=== PATIENT | female | born 1950 | race Caucasian/White ===

== ENCOUNTER 2024-06-11 14:00 | Emergency (ER) | payer MEDICARE, MEDICAID ==
[2024-06-11] MEDS ORDERED: ACETAMINOPHEN325 M2 PO (14:14)
[2024-06-11] MEDS ORDERED: LIPITOR40 MG PO (14:15)
[2024-06-11] MEDS ORDERED: BISACODYL10 MG R (14:16)
[2024-06-11] MEDS ORDERED: DIVALPROEX SOD500 MG PO (14:17)
[2024-06-11] MEDS ORDERED: SM ENEMA READY R (14:19)
[2024-06-11] MEDS ORDERED: HUMALOG100 UNIT/2 SQ (14:21)
[2024-06-11] MEDS ORDERED: INSULIN GL100 UNIT/1 SQ (14:22)
[2024-06-11] MEDS ORDERED: JANUVIA50 MG PO (14:23)
[2024-06-11] MEDS ORDERED: LACTAID FAS9000 UNIT PO (14:24)
[2024-06-11] MEDS ORDERED: LISINOPRIL10 M1 PO (14:25)
[2024-06-11] MEDS ORDERED: LOPERAMIDE HCL2 MG PO (14:26)
[2024-06-11] MEDS ORDERED: LORADAMED10 MG PO (14:28)
[2024-06-11] MEDS ORDERED: MAGOX 400400 MG PO (14:28)
[2024-06-11] MEDS ORDERED: MELATONIN10 M2 PO (14:29)
[2024-06-11] MEDS ORDERED: METFORMIN HYDR500 MG PO (14:29)
[2024-06-11] MEDS ORDERED: METOPROLOL SUCC50 M1 PO (14:30)
[2024-06-11] MEDS ORDERED: OMEPRAZOLE MAGN20 MG PO (14:31)
[2024-06-11] MEDS ORDERED: POTASSIUM99 M7 PO (14:33)
[2024-06-11] MEDS ORDERED: REMERON15 M2 PO (14:34)
[2024-06-11] MEDS ORDERED: SYNTHROID300 MCG PO (14:35)
[2024-06-11] MEDS ORDERED: VIMPAT100 MG PO (14:35)
[2024-06-11] MEDS ORDERED: VITAMIN D325 MCG PO (14:36)
[2024-06-11 14:42] LABS: BASO % 0.3 % (0.0-1.0); EOS # 0.3 10*3/uL (0.0-0.4); EOS % 4.5 % (1.0-4.0); HEMATOCRIT 32.9 % (37.0-47.0); LYMPH # 1.5 10*3/uL (1.3-4.4); LYMPH % 20.1 % (27.0-41.0); MEAN CELL VOLUME 83.1 fl (81.0-99.0); MEAN CORPUSCULAR HGB 24.7 pg (27.0-31.0); MEAN CORPUSCULAR HGB CONC 29.8 g/dl (33.0-37.0); MEAN PLATELET VOLUME 8.7 fl (9.6-12.3); MONO # 0.6 10*3/uL (0.1-1.0); MONO % 8.6 % (3.0-9.0); NEUT # 4.9 10*3/uL (2.3-7.9); NEUT % 66.2 % (47.0-73.0); PLATELET COUNT AUTOMATED 167 10*3/uL (130-400); RED BLOOD COUNT 3.96 10*6/uL (4.10-5.10); RED CELL DISTRI WIDTH 15.9 % (0-14.5); WHITE BLOOD COUNT 7.3 10*3/uL (4.8-10.8)
[2024-06-11 15:20] LABS: BILIRUBIN Negative (Negative); BLOOD Negative (Negative); CLARITY Cloudy (Clear); COLOR Yellow (Yellow); GLUCOSE Trace (Negative); KETONE 1+ (Negative); LEUKO ESTERASE 2+ (Negative); NITRITE Negative (Negative); SPECIFIC GRAVITY 1.025 (1.001-1.030); UROBILINOGEN 0.2 E.U./dl (0.0-1.0)
[2024-06-11 15:27] LABS: URINE AMPHETAMINES Negative (1000ng/ml); URINE BARBITURATES Negative (200ng/ml); URINE BENZODIAZEPINES Negative (200ng/ml); URINE CANNABINOIDS (THC) Negative (50ng/ml); URINE COCAINE Negative (300ng/ml); URINE METHADONE Negative (300ng/ml); URINE OPIATES Negative (300ng/ml); URINE PHENCYCLIDINE Negative (25ng/ml)
[2024-06-11 15:30] LABS: ALKALINE PHOSPHATASE 75 U/L (46-116); BUN 8 mg/dl (9-23); CHLORIDE 106 mmol/L (98-107); CPK 27 U/L (34-171); POTASSIUM 3.4 mmol/L (3.4-5.1); TOTAL PROTEIN 5.8 gm/dL (6.0-8.0)
[2024-06-11 15:31] LABS: ETHYL ALCOHOL < 3.0 mg/dl (<3); SGPT/ALT < 7 U/L (5-49)
[2024-06-11] MEDS ORDERED: Fosfomycin Tromethamine 3 GM PDS PO ONE (15:35)
[2024-06-11 15:36] LABS: BACTERIA 1+; WBC 21-30 wbc/hpf (0-5)
[2024-06-11] MEDS ORDERED: ALUM-MAG HYDROX30 ML PO (16:48)
[2024-06-11] MEDS ORDERED: PROBIOTIC250 MG PO (16:55)
[2024-06-11] MEDS ORDERED: Synthroid,Lev200 MCG PO (18:07)
[2024-06-11] MEDS ORDERED: Synthroid,Levo25 MCG PO (18:08)
== END 2024-06-11 16:08 | disposition admitted as inpatient to this hospital (09) ==
LOC: ED 14:00
PROVIDERS: Nurse Practitioner Family
DX: F63.81 Intermittent explosive disorder (principal); Z20.822 Contact with and (suspected) exposure to COVID-19; N39.0 Urinary tract infection, site not specified; I10 Essential (primary) hypertension; E03.9 Hypothyroidism, unspecified; E78.5 Hyperlipidemia, unspecified; M19.90 Unspecified osteoarthritis, unspecified site; Z88.6 Allergy status to analgesic agent; Z91.010 Allergy to peanuts; Z88.8 Allergy status to other drugs, medicaments and biological substances

== ENCOUNTER 2024-06-11 15:41 | Inpatient (IN) | payer MEDICARE, MEDICAID ==
[~2024-06-11] VITALS: Ht 157.5 cm; Wt 104.9 kg
[~2024-06-11 15:41] MED LIST: ACETAMINOPHEN325 M2 PO; BISACODYL10 MG R; DIVALPROEX SOD500 MG PO; HUMALOG100 UNIT/2 SQ; INSULIN GL100 UNIT/1 SQ; JANUVIA50 MG PO; LACTAID FAS9000 UNIT PO; LIPITOR40 MG PO; LISINOPRIL10 M1 PO; LOPERAMIDE HCL2 MG PO; LORADAMED10 MG PO; MAGOX 400400 MG PO; MELATONIN10 M2 PO; METFORMIN HYDR500 MG PO; METOPROLOL SUCC50 M1 PO; OMEPRAZOLE MAGN20 MG PO; POTASSIUM99 M7 PO; REMERON15 M2 PO; SM ENEMA READY R; SYNTHROID300 MCG PO; VIMPAT100 MG PO; VITAMIN D325 MCG PO
[2024-06-11 16:09] VITALS: BP 170/80
[2024-06-11] MEDS ORDERED: ALUM-MAG HYDROX30 ML PO (16:48)
[2024-06-11] MEDS ORDERED: PROBIOTIC250 MG PO (16:55)
[2024-06-11] MEDS ORDERED: LORazepam 1 MG TAB PO PRN (17:00)
[2024-06-11] MEDS ORDERED: Ziprasidone Mesylate 20 MG VIAL IM PRN (17:00)
[2024-06-11] MEDS ORDERED: LORazepam 2 MG/ML VIAL IM PRN (17:00)
[2024-06-11] MEDS ORDERED: ACETAMINOPHEN 325 MG TAB PO PRN (17:20)
[2024-06-11] MEDS ORDERED: Magnesium Hydroxide 30 ML UDC PO PRN (17:20)
[2024-06-11] MEDS ORDERED: MG-AL HYDROXIDE/SIMETICONE 30 ML UDC PO PRN (17:20)
[2024-06-11] MEDS ORDERED: Synthroid,Lev200 MCG PO (18:07)
[2024-06-11] MEDS ORDERED: Synthroid,Levo25 MCG PO (18:08)
[2024-06-11] MEDS ORDERED: DEXTROSE 10 % IN WATER 250 ML IV PRN (18:45)
[2024-06-11] MEDS ORDERED: cloNIDine Hydrochloride 0.1 MG TAB PO ONE (18:50)
[2024-06-11] MEDS ORDERED: LISINOPRIL 10 MG TAB PO SCH (18:55)
[2024-06-11 20:00] VITALS: BP 160/80
[2024-06-11] MEDS ORDERED: Menthol/Zinc Oxide 4 GM THIN T SCH (21:00)
[2024-06-11] MEDS ORDERED: Memantine Hydrochloride 5 MG TAB PO SCH (21:00)
[2024-06-11] MEDS ORDERED: ATORVASTATIN CALCIUM 40 MG TABLET PO SCH (21:00)
[2024-06-11] MEDS ORDERED: RISPERIDONE 0.5 MG ODT OGT SCH (21:00)
[2024-06-11] MEDS ORDERED: LACOSAMIDE 50 MG TAB PO SCH (21:00)
[2024-06-11] MEDS ORDERED: NYSTATIN 15 GM BOT T SCH (22:00)
[2024-06-11] MEDS ORDERED: INSULIN LISPRO 1 UNIT/0.01 ML SQ SCH (22:00)
[2024-06-11] MEDS ORDERED: Insulin Glargine, Recombinan 300 UNITS/3 ML PEN SC SCH (22:00)
[2024-06-11] MEDS ORDERED: DIVALPROEX (DR) 500 MG TAB PO SCH (22:00)
[2024-06-11] MEDS ORDERED: ZINC OXIDE 1 OZ TUBE T SCH (22:00)
[2024-06-12] MEDS ORDERED: Levothyroxine Sodium 200 MCG TAB PO SCH (06:00)
[2024-06-12] MEDS ORDERED: Levothyroxine Sodium 25 MCG TAB PO SCH (06:00)
[2024-06-12 07:46] LABS: VITAMIN D, 25-HYDROXY 62.1 ng/mL (30-100)
[2024-06-12 08:00] VITALS: BP 149/80
[2024-06-12] MEDS ORDERED: LACTASE 9000 UNIT PO SCH (08:00)
[2024-06-12] MEDS ORDERED: Rivastigmine Tartrate 4.6 MG/24 HR PATCH T SCH (09:00)
[2024-06-12] MEDS ORDERED: MAGNESIUM OXIDE 400 MG TAB PO SCH (09:00)
[2024-06-12] MEDS ORDERED: OMEPRAZOLE 20 MG CAP PO SCH (09:00)
[2024-06-12] MEDS ORDERED: LISINOPRIL 10 MG TAB PO SCH (10:00)
[2024-06-12] MEDS ORDERED: LINAGLIPTIN 5 MG TAB PO SCH (10:00)
[2024-06-12] MEDS ORDERED: LORATADINE 10 MG TAB PO SCH (10:00)
[2024-06-12] MEDS ORDERED: METOPROLOL SUCCINATE XR 50 MG TAB PO SCH (10:00)
[2024-06-12 20:00] VITALS: BP 154/71
[2024-06-12] MEDS ORDERED: Prazosin Hydrochloride 1 MG CAP PO SCH (21:00)
[2024-06-13 08:22] VITALS: BP 147/72
[2024-06-13 20:00] VITALS: BP 154/83
[2024-06-14 10:00] VITALS: BP 146/90
[2024-06-14 20:00] VITALS: BP 161/67
[2024-06-14] MEDS ORDERED: RISPERIDONE 1 MG TAB OGT SCH (21:00)
[2024-06-14] MEDS ORDERED: Memantine Hydrochloride 5 MG TAB PO SCH (21:00)
[2024-06-15 06:28] LABS: BASO % 0.3 % (0.0-1.0); EOS # 0.3 10*3/uL (0.0-0.4); EOS % 5.1 % (1.0-4.0); LYMPH # 1.8 10*3/uL (1.3-4.4); LYMPH % 26.2 % (27.0-41.0); MEAN CELL VOLUME 80.2 fl (81.0-99.0); MEAN CORPUSCULAR HGB 25.3 pg (27.0-31.0); MEAN CORPUSCULAR HGB CONC 31.6 g/dl (33.0-37.0); MEAN PLATELET VOLUME 8.8 fl (9.6-12.3); MONO # 0.6 10*3/uL (0.1-1.0); MONO % 8.2 % (3.0-9.0); NEUT % 59.9 % (47.0-73.0); PLATELET COUNT AUTOMATED 138 10*3/uL (130-400); RED BLOOD COUNT 3.99 10*6/uL (4.10-5.10); WHITE BLOOD COUNT 6.7 10*3/uL (4.8-10.8)
[2024-06-15 06:33] LABS: ALKALINE PHOSPHATASE 68 U/L (46-116); BUN 11 mg/dl (9-23); CHLORIDE 105 mmol/L (98-107); POTASSIUM 3.3 mmol/L (3.4-5.1); SGPT/ALT 7 U/L (5-49); TOTAL PROTEIN 5.9 gm/dL (6.0-8.0); VALPROIC ACID (DEPAKENE) 57.9 ug/ml (50-100)
[2024-06-15] MEDS ORDERED: Rivastigmine Tartrate 9.5 MG/24 HR PATCH T SCH (09:00)
[2024-06-15 20:00] VITALS: BP 180/88
[2024-06-15] MEDS ORDERED: CEPHALEXIN 500 MG CAP PO SCH (21:00)
[2024-06-15] MEDS ORDERED: hydrALAZINE hydrochloride 25 MG TAB PO ONE (21:20)
[2024-06-16 07:56] VITALS: BP 109/73
[2024-06-16] MEDS ORDERED: Loperamide Hydrochloride 2 MG CAP PO PRN (18:40)
[2024-06-16 19:21] VITALS: BP 171/98
[2024-06-16] MEDS ORDERED: hydrALAZINE hydrochloride 25 MG TAB PO ONE (19:40)
[2024-06-16] MEDS ORDERED: Memantine Hydrochloride 10 MG TAB PO SCH (21:00)
[2024-06-17] MEDS ORDERED: Memantine Hydrochloride 5 MG TAB PO SCH (09:00)
[2024-06-17] MEDS ORDERED: RIVASTIGMINE 13.3 MG/24 HR TDM T SCH (09:15)
[2024-06-17 09:16] LABS: BILIRUBIN Negative (Negative); BLOOD Negative (Negative); CLARITY Clear (Clear); COLOR Yellow (Yellow); GLUCOSE Negative (Negative); KETONE Negative (Negative); LEUKO ESTERASE 1+ (Negative); NITRITE Negative (Negative); PH 7.5 (4.5-8.0); SPECIFIC GRAVITY 1.015 (1.001-1.030)
[2024-06-17 09:28] LABS: BACTERIA 1+; MUCOUS 1+; RBC 0-2 rbc/hpf (0-2)
[2024-06-17 09:38] VITALS: BP 138/82
[2024-06-17 20:00] VITALS: BP 152/77
[2024-06-18 07:54] VITALS: BP 150/70
[2024-06-18] MEDS ORDERED: LISINOPRIL 20 MG TAB PO SCH (10:00)
[2024-06-18 20:00] VITALS: BP 154/82
[2024-06-18] MEDS ORDERED: Memantine Hydrochloride 10 MG TAB PO SCH (21:00)
[2024-06-19 08:00] VITALS: BP 171/92
[2024-06-19] MEDS ORDERED: Magnesium Hydroxide 30 ML UDC PO PRN (16:45)
[2024-06-19] MEDS ORDERED: ACETAMINOPHEN 325 MG TAB PO PRN (16:45)
[2024-06-19] MEDS ORDERED: MG-AL HYDROXIDE/SIMETICONE 30 ML UDC PO PRN (16:45)
[2024-06-19] MEDS ORDERED: AMOXICILLIN 500 MG CAP PO SCH (18:00)
[2024-06-19 20:00] VITALS: BP 150/72
[2024-06-20 08:18] VITALS: BP 158/77
[2024-06-20] MEDS ORDERED: RIVASTIGMINE1 EAC2 T (08:47)
[2024-06-20] MEDS ORDERED: RISPERDAL1 M1 OGT (08:47)
[2024-06-20] MEDS ORDERED: MEMANTINE HCL10 MG PO (08:47)
[2024-06-20] MEDS ORDERED: MINIPRESS1 M1 PO (08:47)
[2024-06-20] MEDS ORDERED: AMOXICILLIN500 M3 PO (10:32)
[2024-06-20] MEDS ORDERED: KEFLEX 500 MG E2 CAP PO (10:32)
[2024-06-20 20:00] VITALS: BP 153/89
[2024-06-21 07:53] VITALS: BP 152/66
[2024-06-21 20:00] VITALS: BP 155/89
[2024-06-22 07:58] VITALS: BP 134/87
[2024-06-22 20:00] VITALS: BP 162/81
[2024-06-23 08:00] VITALS: BP 150/89
[2024-06-23 08:39] LABS: BASO % 0.5 % (0.0-1.0); EOS # 0.6 10*3/uL (0.0-0.4); EOS % 9.4 % (1.0-4.0); HEMATOCRIT 31.4 % (37.0-47.0); LYMPH # 1.3 10*3/uL (1.3-4.4); LYMPH % 19.8 % (27.0-41.0); MEAN CELL VOLUME 80.9 fl (81.0-99.0); MEAN CORPUSCULAR HGB 25.3 pg (27.0-31.0); MEAN CORPUSCULAR HGB CONC 31.2 g/dl (33.0-37.0); MEAN PLATELET VOLUME 9.1 fl (9.6-12.3); MONO # 0.5 10*3/uL (0.1-1.0); NEUT # 4.1 10*3/uL (2.3-7.9); NEUT % 62.1 % (47.0-73.0); PLATELET COUNT AUTOMATED 134 10*3/uL (130-400); RED BLOOD COUNT 3.88 10*6/uL (4.10-5.10); RED CELL DISTRI WIDTH 16.1 % (0-14.5); WHITE BLOOD COUNT 6.6 10*3/uL (4.8-10.8)
[2024-06-23 09:03] LABS: ALKALINE PHOSPHATASE 70 U/L (46-116); BUN 23 mg/dl (9-23); CHLORIDE 108 mmol/L (98-107); POTASSIUM 3.7 mmol/L (3.4-5.1); VALPROIC ACID (DEPAKENE) 42.5 ug/ml (50-100)
[2024-06-23 09:04] LABS: SGPT/ALT < 7 U/L (5-49)
[2024-06-23 20:00] VITALS: BP 133/81
[2024-06-24 08:00] VITALS: BP 156/79
[2024-06-24 19:16] VITALS: BP 151/80
[2024-06-25 08:00] VITALS: BP 150/62
== END 2024-06-25 13:45 | DRG 883 ==
LOC: 3N 15:41
PROVIDERS: Counselor Professional; Student in an Organized Health Care Education/Training Program; ADMIT Psychiatry & Neurology Psychiatry; ATTEND Psychiatry & Neurology Psychiatry
PROC: GZHZZZZ Group Psychotherapy (ICD-10-PCS; principal; 2024-06-12)
PROC: GZ51ZZZ Individual Psychotherapy, Behavioral (ICD-10-PCS; 2024-06-12)
DX: F63.81 Intermittent explosive disorder (principal); F70 Mild intellectual disabilities; L30.4 Erythema intertrigo; I10 Essential (primary) hypertension; F43.10 Post-traumatic stress disorder, unspecified; G30.9 Alzheimer's disease, unspecified; F02.80 Dementia in other diseases classified elsewhere, unspecified severity, without behavioral disturbance, psychotic disturbance, mood disturbance, and anxiety; E55.9 Vitamin D deficiency, unspecified; E66.09 Other obesity due to excess calories; E78.2 Mixed hyperlipidemia; K59.09 Other constipation; G40.909 Epilepsy, unspecified, not intractable, without status epilepticus; E03.9 Hypothyroidism, unspecified; Z68.37 Body mass index [BMI] 37.0-37.9, adult; Z88.6 Allergy status to analgesic agent; Z88.8 Allergy status to other drugs, medicaments and biological substances